=== PATIENT | female | born 1930 | race African-American/Black ===

== ENCOUNTER 2017-12-27 00:25 | Emergency (ER) | payer OTHER ==
[~2017-12-27] VITALS: Ht 162.6 cm; Wt 72.6 kg
[2017-12-27] MEDS ORDERED: ALEVE220 M1 (00:42)
[2017-12-27] MEDS ORDERED: MECLIZINE HCL25 MG PO (06:27)
== END 2017-12-27 14:37 | disposition home or self-care (01) ==
LOC: ER 00:25
DX: S40.011A Contusion of right shoulder, initial encounter (principal); H81.8X9 Other disorders of vestibular function, unspecified ear; W06.XXXA Fall from bed, initial encounter; Y93.89 Activity, other specified; Y92.89 Other specified places as the place of occurrence of the external cause; Y99.8 Other external cause status